=== PATIENT | male | born 1990 | race Caucasian/White ===

== ENCOUNTER 2017-08-04 | Emergency (ER) | payer SELFPAY ==
[~2017-08-04] VITALS: Ht 167.6 cm; Wt 77.0 kg
[2017-08-04] MEDS ORDERED: HYDROCODONE/ACETAMINOPHEN 10/325MG TABLET PO ONE (01:45)
[2017-08-04 02:00] VITALS: BP 123/78
[2017-08-04 02:05] LABS: BASOPHILS % 0.8 % (0.0-2.0); EOSINOPHILS % 0.6 % (0.0-5.0); HEMATOCRIT. 42.9 % (42.0-52.0); HEMOGLOBIN. 14.8 g/dL (14.0-18.0); LYMPHOCYTES % 9.8 % (20.0-50.0); MEAN CORPUSCULAR HEMOGLOBIN 29.6 pg (28.0-32.0); MEAN CORPUSCULAR VOLUME 85.7 fL (80.0-94.0); MEAN PLATELET VOLUME 8.6 fl (7.4-10.4); MONOCYTES % 8.7 % (2.0-8.0); NEUTROPHILS % 80.1 % (40.0-76.0); PLATELET 249 x1000/uL (130-400); RED CELL DISTRIBUTION WIDTH 13.4 % (11.6-14.6)
[2017-08-04 02:17] LABS: CARBON DIOXIDE 26 mEq/L (21-32); CHLORIDE 107 mEq/L (98-107); TROPONIN I < 0.02 ng/mL (0.00-0.04)
== END 2017-08-04 04:35 | disposition home or self-care (01) ==
LOC: ER 00:05
DX: M94.0 Chondrocostal junction syndrome [Tietze] (principal)
CPT/HCPCS: 36415; 71010; 80048; 84484; 85025; 85379; 93005; 99285; Z7610